=== PATIENT | female | born 1945 | race Caucasian/White ===

== ENCOUNTER → 2022-10-20 | Outpatient (CLI) | payer MEDICARE, SELFPAY ==
[2022-10-20 12:15] LABS: Absolute Lymphocyte Count 1.58 X10^3/uL (0.83-4.51); Absolute Neutrophil Count 4.2 X10^3/uL (2.0-7.7); Basophil# 0.04 X10^3/uL; Basophil% 0.6 % (0-1); Eosinophil# 0.05 X10^3/uL; Eosinophils% 0.8 % (0-5); Hematocrit 46.1 % (37-47); Hemoglobin 14.9 g/dL (12.0-15.0); Lymphocyte # 1.58 X10^3/ul (0.83-4.51); Lymphocyte % 24.9 % (19-41); Mean Corp Hgb Conc 32.3 g/dL (32-36); Mean Corpuscular Hgb 31.2 pg (27.0-32.0); Mean Corpuscular Volume 96.6 fL (81-99); Monocyte# 0.42 X10^3/uL; Monocyte% 6.6 % (0-10); NRBC Flagged by Analyzer 0 % (0-5); Neutrophil # 4.24 X10^3/uL (2.7-7.7); Neutrophil % 66.8 % (47-70); Platelet Count 123 K/mm3 (150-450); RBC Distribution Width CV 12.5 % (11.6-14.6); RBC Distribution Width SD 44.8 fl (35.1-43.9); Red Blood Count 4.77 M/mm3 (4.2-5.4); White Blood Count 6.4 K/mm3 (4.4-11.0)
[2022-10-20 13:24] LABS: Microalbumin,Random Urine < 5.0 mg/L (NO RANGE EST.)
[2022-10-20 14:05] LABS: ALB/GLOB Ratio 1.1 RATIO (0.9-2.4); AST(SGOT) 17 U/L (15-37); Alanine Aminotransfer ALT/SGPT 27 U/L (13-56); Albumin, Serum 3.9 g/dL (3.2-5.0); Alkaline Phosphatase 80 U/L (45-117); Anion Gap 9 (5-15); BUN 10 mg/dL (7-18); Calcium,Total 9.7 mg/dL (8.5-10.1); Chloride 104 mmol/L (98-107); Cholesterol 207 mg/dL (200); Creatinine, Serum 0.67 mg/dL (0.55-1.02); EST Glomerular Filtration Rate 91 mL/min (>60); Est Glom Filt Rate - Afr Amer 111 mL/min (>60); Free T3 4.2 pg/mL (2.18-3.98); Globulin 3.4 g/dL (2.2-4.2); Glucose 98 mg/dL (74-106); High Density Lipoprotein 85 mg/dL; Potassium 3.9 mmol/L (3.5-5.1); Protein, Total 7.3 g/dL (6.4-8.2); Sodium Level 140 mmol/L (136-145); T4 Free Direct 0.96 ng/dL (0.76-1.46); Thyroid Stim Hormone (TSH) 0.85 uIU/mL (0.358-3.74); Triglycerides 57 mg/dL; Very Low Density Lipoprotein 11 mg/dL (5-40)
== END | disposition home or self-care (01) ==
PROVIDERS: PCP Family Medicine; Referring Provider Family Medicine; Visit Provider Family Medicine
DX: I10 Essential (primary) hypertension (principal); E03.9 Hypothyroidism, unspecified
CPT/HCPCS: 36415; 80053; 80061; 82043; 84439; 84443; 84481; 85025

== ENCOUNTER → 2023-04-11 | Outpatient (CLI) | payer MEDICARE, SELFPAY ==
[2023-04-11 10:27] LABS: Absolute Lymphocyte Count 1.42 X10^3/uL (0.83-4.51); Absolute Neutrophil Count 3.9 X10^3/uL (2.0-7.7); Basophil# 0.07 X10^3/uL; Basophil% 1.1 % (0-1); Eosinophil# 0.34 X10^3/uL; Eosinophils% 5.5 % (0-5); Hematocrit 44.9 % (37-47); Hemoglobin 14.8 g/dL (12.0-15.0); Lymphocyte # 1.42 X10^3/ul (0.83-4.51); Mean Corpuscular Hgb 31.9 pg (27.0-32.0); Mean Corpuscular Volume 96.8 fL (81-99); Mean Platelet Vol. 13.3 fl (6.2-12.0); Monocyte# 0.41 X10^3/uL; Monocyte% 6.6 % (0-10); NRBC Flagged by Analyzer 0 % (0-5); Neutrophil # 3.92 X10^3/uL (2.7-7.7); Neutrophil % 63.5 % (47-70); Platelet Count 111 K/mm3 (150-450); RBC Distribution Width CV 12.9 % (11.6-14.6); RBC Distribution Width SD 45.9 fl (35.1-43.9); Red Blood Count 4.64 M/mm3 (4.2-5.4); White Blood Count 6.2 K/mm3 (4.4-11.0)
== END | disposition home or self-care (01) ==
LOC: MFPLAB 09:26
PROVIDERS: PCP Family Medicine; Visit Provider Family Medicine
DX: D69.6 Thrombocytopenia, unspecified (principal)
CPT/HCPCS: 36415; 85025

== ENCOUNTER → 2023-06-05 | Outpatient (CLI) | payer MEDICARE, SELFPAY ==
--- NOTE | 2023-06-05 10:10 | BI_ITS ---
MAMMOGRAPHY - BILATERAL SCREENING REASON FOR EXAM: Female, 77 years old. Routine annual screening examination. PERTINENT HISTORY: Daughter with breast cancer. TECHNIQUE: Digital bilateral breast gianni (3D mammographic acquisition) in the CC and MLO projections. 2-D mediolateral oblique (MLO) and craniocaudad (CC) views of both breasts were obtained. CAD: Full Field Digital Mammography with Computer Added Detection was performed. COMPARISON: Comparison is made with prior outside examination July 26, 2021. FINDINGS: Breast Composition: The breasts are extremely dense, which lowers the sensitivity of mammography. There are no dominant masses or suspicious calcifications. No other significant abnormalities are identified. There has been no significant change since the prior study. BI/SCRN MAMM (CAD)W/GIANNI BILAT IMPRESSION: Stable bilateral screening mammogram. Yearly follow-up mammogram recommended. (A) ASSESSMENT CATEGORY: BIRADS Category 1: Negative. A letter regarding these results will be sent to the patient by the facility within 30 days. Approximately 10% of breast cancers are not detected by mammography. A normal mammogram should not delay biopsy of a clinically suspicious abnormality. [id number] Electronically Signed: Augusto Zayas MD at 8:42 EDT ,
== END | disposition home or self-care (01) ==
LOC: OPBI 10:09
PROVIDERS: PCP Family Medicine; Referring Provider Internal Medicine Hematology & Oncology; Visit Provider Internal Medicine Hematology & Oncology
DX: Z12.31 Encounter for screening mammogram for malignant neoplasm of breast (principal)
CPT/HCPCS: 77063; 77067

== ENCOUNTER 2023-10-17 09:56 | Outpatient (CLI) | payer MEDICARE, SELFPAY ==
[2023-10-17 12:12] LABS: Absolute Lymphocyte Count 0.81 X10^3/uL (0.83-4.51); Basophil# 0.06 X10^3/uL; Basophil% 0.9 % (0-1); Eosinophil# 0.08 X10^3/uL; Eosinophils% 1.3 % (0-5); Hematocrit 43.3 % (37-47); Hemoglobin 13.5 g/dL (12.0-15.0); Lymphocyte # 0.81 X10^3/ul (0.83-4.51); Lymphocyte % 12.7 % (19-41); Mean Corp Hgb Conc 31.2 g/dL (32-36); Mean Corpuscular Volume 96.2 fL (81-99); Mean Platelet Vol. 12.7 fl (6.2-12.0); Monocyte% 6.3 % (0-10); NRBC Flagged by Analyzer 0 % (0-5); Neutrophil % 78.5 % (47-70); Platelet Count 244 K/mm3 (150-450); RBC Distribution Width CV 12.6 % (11.6-14.6); RBC Distribution Width SD 44.6 fl (35.1-43.9); White Blood Count 6.4 K/mm3 (4.4-11.0)
[2023-10-17 12:35] LABS: Microalbumin,Random Urine 5.6 mg/L (NO RANGE EST.); Microalbumin:Creatinine Ratio 23.5 mg/g CRE (<30 mg/g CRE)
[2023-10-17 12:41] LABS: Vitamin B12 1293 pg/mL (211-911); Vitamin D,25 Hydroxy 63.3 ng/mL
[2023-10-17 12:56] LABS: ALB/GLOB Ratio 0.7 RATIO (0.9-2.4); AST(SGOT) 29 U/L (15-37); Alanine Aminotransfer ALT/SGPT 28 U/L (13-56); Albumin, Serum 3.4 g/dL (3.2-5.0); Alkaline Phosphatase 116 U/L (45-117); Anion Gap 7 (5-15); BUN 10 mg/dL (7-18); BUN/Creat Ratio 14.7 RATIO (10-20); Calcium,Total 9.4 mg/dL (8.5-10.1); Chloride 105 mmol/L (98-107); Cholesterol 164 mg/dL (200); Creatinine, Serum 0.68 mg/dL (0.55-1.02); EST Glomerular Filtration Rate 89 mL/min (>60); Est Glom Filt Rate - Afr Amer 108 mL/min (>60); Ferritin 274 ng/mL (8-252); Globulin 4.6 g/dL (2.2-4.2); Glucose 110 mg/dL (74-106); High Density Lipoprotein 56 mg/dL; Potassium 4.1 mmol/L (3.5-5.1); Sodium Level 135 mmol/L (136-145); T4 Free Direct 0.97 ng/dL (0.76-1.46); Thyroid Stim Hormone (TSH) 3.52 uIU/mL (0.358-3.74); Triglycerides 70 mg/dL; Very Low Density Lipoprotein 14 mg/dL (5-40)
== END 2023-10-17 23:59 | disposition home or self-care (01) ==
LOC: MTLAB 09:57
PROVIDERS: PCP Family Medicine; Referring Provider Family Medicine; Visit Provider Family Medicine
DX: R53.83 Other fatigue (principal); D69.6 Thrombocytopenia, unspecified; I10 Essential (primary) hypertension; E03.9 Hypothyroidism, unspecified
CPT/HCPCS: 36415; 80053; 80061; 82043; 82306; 82570; 82607; 82728; 84439; 84443; 85025

== ENCOUNTER → 2023-11-16 | Outpatient (CLI) | payer MEDICARE, SELFPAY ==
--- NOTE | 2023-11-16 09:23 | RAD_ITS ---
STUDY: X-RAY - ESOPHAGUS (BARIUM SWALLOW) WITH FLUOROSCOPY REASON FOR EXAM: Female, 78 years old. Difficulty swallowing , please use 12mm tablet TECHNIQUE: 16 view(s) of the esophagus were obtained following swallowing of barium. FLUOROSCOPY TIME (if supplied): (31 seconds) minutes/seconds COMPARISON: None. FINDINGS: There is no demonstrated esophageal foreign body. There is no demonstrated stricture or mucosal abnormality. Large paraesophageal hiatal hernia with gastroesophageal reflux. The patient ingested a 12 mm tablet of barium. No evidence of obstruction. Normal visualized aortic arch and descending thoracic aorta. Normal visualized pulmonary parenchyma. There are diffuse degenerative changes of the visualized thoracic spine. RAD/Esophagus Dual Contrast IMPRESSION: Large paraesophageal hiatal hernia with gastroesophageal reflux. Electronically Signed: Augusto Zayas MD at 10:51 EST ,
== END | disposition home or self-care (01) ==
LOC: RAD 09:22
PROVIDERS: PCP Family Medicine; Referring Provider Family Medicine; Visit Provider Family Medicine
DX: R13.10 Dysphagia, unspecified (principal)
CPT/HCPCS: 74221

== ENCOUNTER 2024-02-13 19:45 | Emergency (ER) | payer MEDICARE, SELFPAY ==
[2024-02-13 19:46] VITALS: BP 166/82; PULSE 107; RESP 16; TEMP 37.7; O2SAT 97; BMI 22.8
[2024-02-13 19:47] VITALS: BP 166/81; PULSE 107; RESP 16; TEMP 37.7; O2SAT 97
== END 2024-02-13 21:32 | disposition left against medical advice (07) ==
LOC: ED 21:41
PROVIDERS: PCP Family Medicine
DX: R31.9 Hematuria, unspecified (principal); Z53.21 Procedure and treatment not carried out due to patient leaving prior to being seen by health care provider

== ENCOUNTER → 2024-02-14 | Outpatient (CLI) | payer MEDICARE, SELFPAY | END | disposition home or self-care (01) | LOC: LABSPEC 10:16 | PROVIDERS: PCP Family Medicine; Referring Provider Physician Assistant; Visit Provider Physician Assistant | DX: R30.0 Dysuria (principal) | CPT/HCPCS: 87086; 87088; 87186 ==

== ENCOUNTER → 2024-04-17 | Outpatient (CLI) | payer MEDICARE, SELFPAY ==
[2024-04-17 13:13] LABS: Thyroid Stim Hormone (TSH) 0.12 uIU/mL (0.358-3.74)
== END | disposition home or self-care (01) ==
LOC: MTLAB 10:27
PROVIDERS: PCP Family Medicine; Referring Provider Family Medicine; Visit Provider Family Medicine
DX: E03.9 Hypothyroidism, unspecified (principal)
CPT/HCPCS: 36415; 84443

== ENCOUNTER → 2024-06-06 | Outpatient (CLI) | payer MEDICARE, SELFPAY ==
--- NOTE | 2024-06-06 09:36 | BI_ITS ---
MAMMOGRAPHY - BILATERAL SCREENING REASON FOR EXAM: Female, 78 years old. Routine annual screening examination. PERTINENT HISTORY: Daughter with breast cancer. TECHNIQUE: Digital bilateral breast gianni (3D mammographic acquisition) in the CC and MLO projections. 2-D mediolateral oblique (MLO) and craniocaudad (CC) views of both breasts were obtained. CAD: Full Field Digital Mammography with Computer Added Detection was performed. COMPARISON: Comparison is made with prior study. Comparison is made with prior study dated June 05, 2023. FINDINGS: Breast Composition: The breasts are extremely dense, which lowers the sensitivity of mammography. There are no dominant masses or suspicious calcifications. No other significant abnormalities are identified. There has been no significant change since the prior study. BI/SCRN MAMM (CAD)W/GIANNI BILAT IMPRESSION: Stable bilateral screening mammogram. Yearly follow-up mammogram recommended. (A) ASSESSMENT CATEGORY: BIRADS Category 1: Negative. A letter regarding these results will be sent to the patient by the facility within 30 days. Approximately 10% of breast cancers are not detected by mammography. A normal mammogram should not delay biopsy of a clinically suspicious abnormality. [id number] Electronically Signed: Augusto Zayas MD at 11:12 EDT ,
== END | disposition home or self-care (01) ==
LOC: OPBI 09:36
PROVIDERS: PCP Family Medicine; Referring Provider Internal Medicine Hematology & Oncology; Visit Provider Internal Medicine Hematology & Oncology
DX: Z12.31 Encounter for screening mammogram for malignant neoplasm of breast (principal)
CPT/HCPCS: 77063; 77067

== ENCOUNTER → 2024-10-21 | Outpatient (CLI) | payer MEDICARE, SELFPAY ==
[2024-10-21 15:59] LABS: T4 Free Direct 0.75 ng/dL (0.76-1.46)
== END | disposition home or self-care (01) ==
LOC: MTLAB 13:02
PROVIDERS: PCP Family Medicine; Referring Provider Family Medicine; Visit Provider Family Medicine
DX: E03.9 Hypothyroidism, unspecified (principal)
CPT/HCPCS: 36415; 84439; 84443

== ENCOUNTER → 2024-12-02 | Outpatient (CLI) | payer MEDICARE, SELFPAY | END | disposition home or self-care (01) | LOC: MFPLAB 09:31 | PROVIDERS: PCP Family Medicine; Visit Provider Family Medicine | DX: E03.9 Hypothyroidism, unspecified (principal) | CPT/HCPCS: 36415; 84439; 84443 ==

== ENCOUNTER → 2025-06-09 | Outpatient (CLI) | payer MEDICARE, SELFPAY ==
--- NOTE | 2025-06-09 10:30 | BI_ITS ---
EXAM: SCRN MAMM (CAD)W/GIANNI BILAT DATE: 06/09/2025 CLINICAL HISTORY: F, Age 79 y/o , SCREENING TECHNIQUE: Procedure Code: [id number] Modality: MG Procedure: SCRN MAMM (CAD)W/GIANNI BILAT COMPARISON: Prior exam(s) dated 06/06/2024 and 06/05/2023. FINDINGS: TISSUE DENSITY: The breasts are extremely dense, which lowers the sensitivity of mammography. Bilateral Breast Mammographic Findings: No significant masses, calcifications or other abnormalities are identified. Benign-appearing round calcifications are seen in both breasts. BI/SCRN MAMM (CAD)W/GIANNI BILAT IMPRESSION: Benign screening mammogram. OVERALL FINAL ASSESSMENT BI-RADS 2: BENIGN RECOMMENDATION: Routine annual follow-up in 1 Year A letter with findings and recommendations will be mailed to the patient. Reading Location: [id number]
== END | disposition home or self-care (01) ==
LOC: OPBI 10:12
PROVIDERS: PCP Family Medicine; Referring Provider Internal Medicine Hematology & Oncology; Visit Provider Internal Medicine Hematology & Oncology
DX: Z12.31 Encounter for screening mammogram for malignant neoplasm of breast (principal)
CPT/HCPCS: 77063; 77067

== ENCOUNTER → 2025-07-16 | Outpatient (CLI) | payer MEDICARE, SELFPAY ==
--- OUTSIDE RECORDS SUMMARY | 2025-07-16 09:52 | XMS RPT_ITS | CCD ---
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 Silviano Paiz Attending Provider Deepak Bell MD Primary Care Provider [phone] Deepak Bell MD Attending Provider Deepak Bell MD Referring Provider Deepak Bell MD Primary Care Physician [phone] Silviano Paiz MD Attending Physician Dr. Silviano Paiz MD Referring Provider Deepak Bell MD Referring Provider [phone] Arabella, Chalon Primary Care Unavailable Arabella, Chalon Attending Unavailable Isckarus, Mansour Attending Unavailable Arabella, Chalon Referring Unavailable Arabella, Chalon Primary Care Unavailable Arabella, Chalon Primary Care Unavailable Isckarus, Mansour Attending Unavailable Isckarus, Mansour Referring Unavailable Arabella, Chalon Attending Unavailable Arabella, Chalon Referring Unavailable Arabella, Chalon Primary Care Unavailable Isckarus, Mansour Attending Unavailable Isckarus, Mansour Referring Unavailable Arabella, Chalon Primary Care Unavailable Arabella, Chalon Primary Care Unavailable Arabella, Chalon Attending Unavailable Arabella, Chalon Referring Unavailable Allergies Allergy Classification Reported Allergen(s) Allergy Type Date of Onset Reaction(s) Facility (6 sources) levothyroxine Drug Allergy 3 [facility] (6 sources) Tetracycline Drug Allergy 3 [facility] (7 sources) [place] pollen; Translations: [weed pollen] Allergy to substance 3 [facility] (7 sources) raw vegetable; Translations: [raw vegetable] Allergy to substance 3 [facility] Comment on above: or raw fruits - okay if cooked but not able to handle them (1 source) levothyroxine Drug Allergy 5 [facility] (1 source) Tetracycline Drug Allergy 5 [facility] Medications Current Medications Medication Drug Class(es) Dates Sig (Normalized) Sig (Original) famotidine 20 mg oral tablet (3 sources) Histamine-2 Receptor Antagonist Start: 06-13-2024 take 1 tablet by mouth once daily fluticasone propionate 0.05 mg/actuat metered dose nasal spray (3 sources) Corticosteroid Start: 02-14-2024 take 50 ug nasal route every twelve hours as needed irbesartan 150 mg oral tablet (6 sources) Angiotensin 2 Receptor Patt Start: 04-19-2023 take 1 tablet by mouth once daily quercetin 500 mg oral capsule (3 sources) Start: 02-14-2024 take 1 capsule by mouth once daily Thyroid (Pork) (Operations Program Manager Thyroid) 60 mg tablet (4 sources) Start: 04-19-2023 take 1 tablet by mouth once daily Thyroid (Pork) (Operations Program Manager Thyroid) 60 mg tablet Active 60 mg PO DAILY April 19, 2023 12:00am Start: 04-19-2023 take 1 tablet by mouth once da anaid Thyroid (Pork) (Operations Program Manager Thyroid) 60 mg tablet Active 60 MG PO DAILY April 18, 2023 11:00pm Start: 04-19-2023 take 1 tablet by mouth once da anaid Thyroid (Pork) (Operations Program Manager Thyroid) 60 mg tablet Active 60 MG PO DAILY April 19, 2023 12:00am thyroid (shelter) 60 mg oral tab let (2 sources) Start: 04-19-2023 take 1 tablet by harsha once daily Completed/Discontinued Medications Medication Drug Class(es) Dates Sig (Normalized) Sig (Original) amoxicillin 875 mg / clavulanate 125 mg oral tablet (3 sources) Penicillin-class Antibacterial Start: 02-14-2024 End: 06-13-2024 Amoxicillin-Pot Clavulanate 875-125 mg tablet Discontinued 1 {tbl} PO TWICE A DAY 10 0 February 14, 2024 12:00am June 13, 2024 11:18am bone and joint helper (3 sources) Start: 02-14-2024 End: 06-17-2025 take 225 mg by mouth once daily bone and joint helper Discontinued 2 NMA PO DAILY February 14, 2024 12:00am June 17, 2025 11:39am Vit D3 37.5 mg, Vit K3 90 mcg, Sarah 6 mg, CalZone 750 mg, 5-Loxin 225 mg Start: 02-14-2024 take 225 mg by mouth once sonido y bone and joint helper Active 2 NMA PO DAILY February 14, 2024 12:00am Vit D3 37.5 mg, Vit K3 90 mcg, Sarah 6 mg, CalZone 750 mg, 5-Loxin 225 mg joint all (3 sources) Start: 02-14-2024 End: 06-17-2025 joint all Discontinued 1 NMA PO daily February 14, 2024 12:00am June 17, 2025 11:39am hyauronic acid 20 mg, glucosamine HCL 1500 mg, chondroitin sulfate 1200 mg Start: 02-14-2024 joint all Acti ve 1 NMA PO daily February 14, 2024 12:00am hyauronic acid 20 mg, glucosamine HCL 1500 mg, chondroitin sulfate 1200 mg Metagenics, Bone Builder Forte (3 sources) Start: 02-14-2024 End: 06-17-2025 take 160 mg by mouth once daily Metagenics, Bone Builder Forte Discontinued 2 NMA PO DAILY February 14, 2024 12:00am June 17, 2025 11:39am Vit D 50 mcg, Calsium 420 mg, Phospheros 160 mg Start: 02-14-2024 take 160 mg by mouth once sonido y Metagenics, Bone Builder Forte Active 2 NMA PO DAILY February 14, 2024 12:00am Vit D 50 mcg, Calsium 420 mg, Phospheros 160 mg RABEprazole sodium 20 mg delayed release oral tablet (3 sources) Proton Pump Inhibitor Start: 02-14-2024 End: 06-13-2024 take 1 tablet by mouth once daily before breakfast Rabeprazole 20 mg tablet,delayed release (DR/EC) Discontinued 20 mg PO once daily before breakfast February 14, 2024 12:00am June 13, 2024 11:19am Seleno-Iodine, Ortho Molecular (3 sources) Start: 02-14-2024 End: 06-17-2025 take 100 ug by mouth once daily Seleno-Iodine, Ortho Molecular Discontinued 1 NMA PO DAILY February 14, 2024 12:00am June 17, 2025 11:39am Iodine from Potassium Iodine 3 mg, Selenium 100 mcg Start: 02-14-2024 take 100 ug by mouth once daily Seleno-Iodine, Ortho Molecular Active 1 NMA PO DAILY February 14, 2024 12:00am Iodine from Potassium Iodine 3 mg, Selenium 100 mcg Problems Problem Classification Problem Date Documented Date Episodic/Chronic Coagulation and hemorrhagic disorders (10 sources) Thrombocytopenic disorder; Translations: [Thrombocytopenia, unspecified] Onset: 06-17-2025 05-22-2023 Chronic Comment on above: At least since 2021 Essential hypertension (6 sources) Hypertensive disorder; Translations: [Essential (primary) hypertension] 04-19-2023 Chronic Other screening for suspected conditions (not mental disorders or infectious disease) (1 source) Encounter for screening mammogram for malignant neoplasm of breast; Translations: [Encounter for screening mammogram for malignant neoplasm of breast] Onset: 06-21-2025 Episodic Thyroid disorders (7 sources) Hypothyroidism; Translations: [Hypothyroidism, unspecified] Onset: 12-12-2024 04-19-2023 Chronic Results Test Name Value Interpretation Reference Range Facility Absolute lymphocyte countOrd ered By: Silviano Paiz on 06-17-2025 Lymphocytes Auto (Unsp spec) [#/Vol] 0.95 10*3/uL 0.83-4.51 [facility] Absolute neutrophil countOrd ered By: Silviano Paiz on 06-17-2025 Neutrophils (Bld) [#/Vol] 4.2 10*3/uL 2.0-7.7 [facility] Automated lymphocyte count a s percentage of total leukocytesOrdered By: Silviano Paiz on 06-17-2025 Lymphocytes/100 WBC Auto (Unsp spec) 16.4 % Low 19-41 [facility] Basophil percentageOrdered B y: Silviano Paiz on 06-17-2025 Basophils/100 WBC (Bld) 0.7 % 0-1 [facility] CBC W/Diff, Automatedon 09-2 -2024 Absolute Lymph 0.95 X10 3/uL Normal 0.83-4.51 [facility] Comment on above: Performed By: #### L 100.0100 #### [facility] [address] [place], [address] Absolute Neut 4.2 X10 3/uL Normal 2.0-7.7 [facility] Comment on above: Performed By: #### L 100.0100 #### [facility] [address] [place], [address] Basophils/100 WBC (Bld) 0.7 % Normal 0-1 [facility] Comment on above: Performed By: #### L 100.0100 #### [facility] [address] [place], [address] Eosinophils/100 WBC (Bld) 1.7 % Normal 0-5 [facility] Comment on above: Performed By: #### L 100.0100 #### [facility] [address] [place], [address] Erythrocyte distribution width (RBC) [Ratio] 12.6 % Normal 11.6-14.6 [facility] Comment on above: Performed By: #### L 100.0100 #### [facility] [address] [place], [address] Hematocrit (Bld) [Volume fraction] 41.8 % Normal 37-47 [facility] Comment on above: Performed By: #### L 100.0100 #### [facility] [address] [place], [address] Hemoglobin (Bld) [Mass/Vol] 13.6 g/dL Normal 12.0-15.0 [facility] Comment on above: Performed By: #### L 100.0100 #### [facility] [address] [place], [address] IG% 0.300 Normal 0.0-0.9 [facility] Comment on above: Result Comment: IG% - Immature Granulocytes (promyelocytes, myelocytes and metamyelocytes) > 1% indicates that a LEFT SHIFT is Present. Performed By: #### L 100.0100 #### [facility] [address] [place], [address] Lymphocytes/100 WBC (Bld) 16.4 % Low 19-41 [facility] Comment on above: Performed By: #### L 100.0100 #### [facility] [address] [place], [address] MCH (RBC) [Entitic mass] 31.5 pg Normal 27.0-32.0 [facility] Comment on above: Performed By: #### L 100.0100 #### [facility] [address] [place], [address] MCHC (RBC) [Mass/Vol] 32.5 g/dL Normal 32-36 [facility] Comment on above: Performed By: #### L 100.0100 #### [facility] [address] [place], [address] MCV (RBC) [Entitic vol] 96.8 fL Normal 81-99 [facility] Comment on above: Performed By: #### L 100.0100 #### [facility] [address] [place], [address] Monocytes/100 WBC (Bld) 8.6 % Normal 0-10 [facility] Comment on above: Performed By: #### L 100.0100 #### [facility] [address] [place], [address] Neutrophils/100 WBC (Bld) 72.3 % High 47-70 [facility] Comment on above: Performed By: #### L 100.0100 #### [facility] [address] [place], [address] Nucleated RBC (Bld) [#/Vol] 0 10*3/uL Normal 0-5 [facility] Comment on above: Performed By: #### L 100.0100 #### [facility] [address] [place], [address] Platelet mean volume (Bld) [Entitic vol] 12.9 fL High 6.2-12.0 [facility] Comment on above: Performed By: #### L 100.0100 #### [facility] [address] [place], [address] Platelets (Bld) [#/Vol] 108 10*3/uL Low 150-450 [facility] Comment on above: Performed By: #### L 100.0100 #### [facility] [address] [place], [address] RBC (Bld) [#/Vol] 4.32 10*6/uL Normal 4.2-5.4 [facility] Comment on above: Performed By: #### L 100.0100 #### [facility] [address] [place], [address] RDW SD 45.0 fl High 35.1-43.9 [facility] Comment on above: Performed By: #### L 100.0100 #### [facility] [address] [place], [address] WBC (Bld) [#/Vol] 5.8 10*3/uL Normal 4.4-11.0 [facility] Comment on above: Performed By: #### L 100.0100 #### [facility] [address] [place], [address] Eosinophil percentageOrdered By: Silviano Paiz on 06-17-2025 Eosinophils/100 WBC (Bld) 1.7 % 0-5 [facility] Erythrocyte distribution wid th ratioOrdered By: Silviano Paiz on 06-17-2025 Erythrocyte distribution width (RBC) [Ratio] 12.6 % 11.6-14.6 [facility] Erythrocyte distribution wid th standard deviationOrdered By: Silviano Paiz on 06-17-2025 Erythrocyte distribution width (RBC) [Ratio] 45.0 fl High 35.1-43.9 [facility] Hematocrit Auto (Bld) [Volum e fraction]Ordered By: Silviano Paiz on 06-17-2025 Hematocrit (Bld) [Volume fraction] 41.8 % 37-47 [facility] Hemoglobin measurementOrdere d By: Silviano Paiz on 06-17-2025 Hemoglobin (Bld) [Mass/Vol] 13.6 g/dL 12.0-15.0 [facility] Immature granulocytes/100 WB C Auto (Bld)Ordered By: Silviano Paiz on 06-17-2025 Immature granulocytes/100 WBC (Bld) 0.300 % 0.0-0.9 [facility] Comment on above: IG% - Immature Granu locytes (promyelocytes, myelocytes and metamyelocytes) > 1% indicates that a LEFT SHIFT is Present. MCV (mean corpuscular volume ) determinationOrdered By: Silviano Paiz on 06-17-2025 MCV (RBC) [Entitic vol] 96.8 fL 81-99 [facility] Mean corpuscular hemoglobin (MCH) determinationOrdered By: Silviano Paiz on 06-17-2025 MCH (RBC) [Entitic mass] 31.5 pg 27.0-32.0 [facility] Mean corpuscular hemoglobin concentration (MCHC) determinationOrdered By: Silviano Paiz on 06-17-2025 MCHC (RBC) [Mass/Vol] 32.5 g/dL 32-36 [facility] Mean platelet volume determi nationOrdered By: Silviano Paiz on 06-17-2025 Platelet mean volume (Bld) [Entitic vol] 12.9 fL High 6.2-12.0 [facility] Monocyte percentageOrdered B y: Silviano Paiz on 06-17-2025 Monocytes/100 WBC (Bld) 8.6 % 0-10 [facility] Neutrophil percentageOrdered By: Silviano Paiz on 06-17-2025 Neutrophils/100 WBC (Bld) 72.3 % High 47-70 [facility] Nucleated red blood cell per centageOrdered By: Silviano Paiz on 06-17-2025 Nucleated RBC/100 WBC (Bld) [Ratio] 0 % 0-5 [facility] Oncology Visit Reporton 05-27 Oncology Visit Report [facility] [place] [facility] [place] [address] OFFICE VISIT Date of Service: 06/17/25 1134 MR#: [id number] Acct: [id number] Name: TERESA LOWRY Rep #: [id number] : 1945 From: Silviano Paiz MD Age/Sex: 79/F Location: [facility] Status: Signed HPI Subjective Date of Service 06/13/24 Chief Complaint Low platelet count History of Present Illness 77-year-old female moved from [place] back to her hometown in [place] in 2022 and noted to have thrombocytopenia. See lab section for risk control representative blood counts. Patient provided an old CBC from September 2021 showing a platelet count of 119. No abnormal bleeding or bruising. [facility] Medical History Hiatal hernia Hypothyroid Hypertension Thrombocytopenia Surgical History History of esophagogastroduodenoscopy (EGD) History of dilation and curettage History of appendectomy Family History Father Heart disease Myocardial infarction Mother Heart disease Myocardial infarction Social History Smoking Status: Never smoker alcohol intake: never substance use type: does not use ROS Constitutional Constitutional: Reports systems reviewed and no addt'l complaints, except as documented Eyes Eyes: Reports systems reviewed and no addt'l complaints, except as documented ENT HEENT: Reports systems reviewed and no addt'l complaints, except as documented; Denies bleeding gums or epistaxis Cardiovascular Cardiovascular: Reports systems reviewed and no addt'l complaints, except as documented Respiratory/Chest Respiratory/Chest: Reports systems reviewed and no addt'l complaints, except as documented; Denies cough or hemoptysis Gastrointestinal Gastrointestinal: Reports systems reviewed and no addt'l complaints, except as documented; Denies hematochezia or melena Genitourinary Genitourinary: Reports systems reviewed and no addt'l complaints, except as documented; Denies hematuria Musculoskeletal Musculoskeletal: Reports systems reviewed and no addt'l complaints, except as documented Integumentary Integumentary: Reports systems reviewed and no addt'l complaints, except as documented; Denies bleeding lesions or unusual bruising Neurologic Neurologic: Reports systems reviewed and no addt'l complaints, except as documented Psychiatric Psychiatric: Reports systems reviewed and no addt'l complaints, except as documented Endocrine Endocrinology: Reports systems reviewed and no addt'l complaints, except as documented Hematologic/Lymphatic Hematologic/Lymphatic: Reports systems reviewed and no addt'l complaints, except as documented; Denies anemia, easy bleeding or easy bruising Allergic/Immunologic Allergic/Immunologic: Reports systems reviewed and no addt'l complaints, except as documented Intake Vital Signs 06/13/24 11:20 06/17/25 11:35 06/17/25 11:40 Height 5 ft 2 in 5 ft 2 in 5 ft 2 in Weight: 56.699 kg BMI 22.8 BP 176/82 H Blood Pressure Location Lt brachial Position Sitting Respiration 18 Pulse 69 Pulse Source Monitor Temp 97.7 F L Temperature Source Temporal Artery Pulse Oximetry (%) 95 Oxygen Delivery Method room air Intake Is patient in pain?: No Allergies raw vegetable Allergy (Mild, Verified 06/17/25 11:37) Rash weed pollen Allergy (Mild, Verified 06/17/25 11:37) Rash tetracycline Allergy (Verified 06/17/25 11:37) Hives levothyroxine Adverse Reaction (Verified 06/17/25 11:37) Dizziness Medications ???Medication ???Instructions ???Recorded ???Confirmed ???Type irbesartan 150 mg tablet 150 mg PO DAILY 04/19/23 06/13/24 History thyroid (pork) 60 mg tablet (SINGLE FOLD MACHINE OPERATOR 60 mg PO DAILY 04/19/23 06/13/24 H istory Thyroid) fluticasone propionate 50 1 spray intranasal Q12H PRN 06/13/24 History mcg/actuation nasal spray,suspension (Flonase Allergy Relief) quercetin 500 mg capsule 500 mg PO DAILY 02/14/24 06/13/24 History famotidine 20 mg tablet 20 mg PO QDAY 06/13/24 06/13/24 Hi story Have you fallen in the past year?: No Central Venous Access Central Venous Access: No Laboratory Tests 10/20/22 04/11/23 10/17/23 10:33 09: 10:04 Plt Count 123 L 111 L 244 06/13/24 06/17/25 10:13 10:40 Plt Count 122 L 108 L Exam Physical Exam Const alert, oriented x3 and no apparent distress Skin no petechiae General Skin Exam: Negative for ecchymosis Coding Level of Care Code Off vis,est,level 3 Exam Problem Focused Diagnoses Thrombocytopenia D69.6 Assessment and Plan Assessment and Plan (1) Thrombocytopenia: Status: Chronic (more content not included)... Normal [facility] Platelet countOrdered By: Sera Paiz on 06-17-2025 Platelets (Bld) [#/Vol] 108 10*3/uL Low 150-450 [facility] RBC Auto (Bld) [#/Vol]Ordere d By: Silviano Paiz on 06-17-2025 RBC (Bld) [#/Vol] 4.32 10*6/uL 4.2-5.4 [facility] White blood cell (WBC) count Ordered By: Silviano Paiz on 06-17-2025 WBC (Bld) [#/Vol] 5.8 10*3/uL 4.4-11.0 [facility] Breast imaging reportOrdered By: Sivan Maxwell on 06-09-2025 Study report [facility] Imaging Services [address] [place] [address] SCRN MAMM (CAD)W/GIANNI BILAT MR#: [id number] Acct: [id number] Name: TERESA LOWRY Rep #: [id number] : 1945 F 79 From: Blu Maxwell DO PCP: Dr. Deepak Bell MD Status: REG CL I Study:SCRN MAMM (CAD)W/GIANNI BILAT Date of Exa m: 06/09/25 Exam# [id number] Ordering Dr: Silviano Paiz MD EXAM: SCRN MAMM (CAD)W/GIANNI BILAT DATE: 06/09/2025 CLINICAL HISTORY: F, Age 79 y/o , SCREENING TECHNIQUE: Procedure Code: BISMWCADBTOM Modality: MG Procedure: SCRN MAMM (CAD)W/GIANNI BILAT COMPARISON: Prior exam(s) dated 06/06/2024 and 06/05/2023. FINDINGS: TISSUE DENSITY: The breasts are extremely dense, which lowers the sensitivity ofmammography. Bilateral Breast Mammographic Findings: No significant masses, calcifications or other abnormalities are identified. Benign-appearing round calcifications are seen in both breasts. BI/SCRN MAMM (CAD)W/GIANNI BILAT IMPRESSION: Benign screening mammogram. OVERALL FINAL ASSESSMENT BI-RADS 2: BENIGN RECOMMENDATION: Routine annual follow-up in 1 Year A letter with findings and recommendations will be mailed to the patient. Reading Location: [id number] CC: Dr. Deepak Bell MD; Dr. 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 Deepak Bell MD Status: REG CLI Study: SCRN MAMM (CAD)W/GAINNI BILAT Date of Exam: 05/26 02/16 Exam# [id number] Ordering Dr: Silviano Paiz MD EXAM: SCRN MAMM (CAD)W/GIANNI BILAT DATE: 06/09/2025 CLINICAL HISTORY: F, Age 79 y/o , SCREENING TECHNIQUE: Procedure Code: BISMWCADBTOM Modality: MG Procedure: SCRN MAMM (CAD)W/GIANNI BILAT COMPARISON: Prior exam(s) dated 06/06/2024 and 06/05/2023. FINDINGS: TISSUE DENSITY: The breasts are extremely dense, which lowers the sensitivity of mammography. Bilateral Breast Mammographic Findings: No significant masses, calcifications or other abnormalities are identified. Benign-appearing round calcifications are seen in both breasts. BI/SCRN MAMM (CAD)W/GIANNI BILAT IMPRESSION: Benign screening mammogram. OVERALL FINAL ASSESSMENT BI-RADS 2: BENIGN RECOMMENDATION: Routine annual follow-up in 1 Year A letter with findings and recommendations will be mailed to the patient. Reading Location: [id number] CC: Dr. Deepak Bell MD; Dr. Silviano Paiz MD Auto Former Machine Operator: Signed Normal [facility] T4 Free Directon 12-02-2024 T4 FREE DIRECT 1.00 ng/dL Normal 0.76-1.46 [facility] Comment on above: Order Comment: Order Date: 10/23/24 Order Info: [id number] - TSH Order Info: 3024-7 - T4F hypothyroid Performed By: #### L 501.9520, L506.0400 #### [facility] [address] [place] [address]. [place], [address] T4 freeOrdered By: Deepak bailey on 12-02-2024 Free T4 [Mass/Vol] 1.00 ng/dL 0.76-1.46 [facility] TSH DL <= 0.005 mIU/L QnOrde red By: Deepak Bell on 12-02-2024 Thyroid Stimulating Hormone (TSH) 1.070 uIU/mL 0.300-4.20 0 [facility] Thyroid Stim Hormone (TSH)on 12-02-2024 TSH 1.070 uIU/mL Normal 0.300-4.20 0 [facility] Comment on above: Order Comment: Order Date: 10/23/24 Order Info: [id number] - TSH Order Info: 3024-7 - T4F Performed By: #### L 501.9520, L506.0400 #### [facility] [address] [facility] [place], [place], [id number] Direct serum free thyroxine (FT4) measurementOrdered By: Deepak Bell on 10-21-2024 Free T4 [Mass/Vol] 0.75 ng/dL Low 0.76-1.46 [facility] T4 Free Directon 10-21-2024 T4 FREE DIRECT 0.75 ng/dL Low 0.76-1.46 [facility] Comment on above: Performed By: #### L 501.9520, L506.0400 #### [facility] [address] [place], [place], [id number] TSH QnOrdered By: Deepak white on 10-21-2024 Thyroid Stimulating Hormone (TSH) 25.100 uIU/mL High 0.358-3.74 0 [facility] Thyroid Stim Hormone (TSH)on 10-21-2024 TSH 25.100 uIU/mL High 0.358-3.74 0 [facility] Comment on above: Performed By: #### L 501.9520, L506.0400 #### [facility] [address] [place], [place], [id number] Absolute lymphocyte countOrd ered By: Arabella Card on 10-17-2023 Lymphocytes Auto (Unsp spec) [#/Vol] 0.81 10*3/uL 0.83-4.51 [facility] Automated lymphocyte count a s percentage of total leukocytesOrdered By: Arabella Card on 10-17-2023 Lymphocytes/100 WBC Auto (Unsp spec) 12.7 % 19-41 [facility] Basophil percentageOrdered B y: Arabella Card on 10-17-2023 Basophils/100 WBC (Bld) 0.9 % 0-1 [facility] Bilirubin [Mass/Vol] 0.70 mg/dL 0.20-1.00 [facility] [facility] Comment on above: For patients on eltr ombopag therapy, use of Dimension [place] TBIL is not recommended. Chloride [Moles/Vol] 105 mmol/L 98-107 [facility] Cholesterol [Mass/Vol] 164 mg/dL <200 [facility] Comment on above: <200 mg/dL Desirable 200-240 mg/dL Borderline >240 mg/dL High Risk Eosinophils/100 WBC (Bld) 1.3 % 0-5 [facility] Glucose [Mass/Vol] 110 mg/dL 74-106 [facility] Comment on above: Fasting Glucose resu lt from 100 to 125 mg/dL suggests IMPAIRED HOMEOSTASIS per A.D.A. criteria. Hemoglobin (Bld) [Mass/Vol] 13.5 g/dL 12.0-15.0 [facility] Monocytes/100 WBC (Bld) 6.3 % 0-10 [facility] Neutrophils (Bld) [#/Vol] 5.0 10*3/uL 2.0-7.7 [facility] Neutrophils/100 WBC (Bld) 78.5 % 47-70 [facility] Potassium [Moles/Vol] 4.1 mmol/L 3.5-5.1 [facility] Protein [Mass/Vol] 8.0 g/dL 6.4-8.2 [facility] Sodium [Moles/Vol] 135 mmol/L 136-145 [facility] Triglyceride [Mass/Vol] 70 mg/dL <199 [facility] Comment on above: The drugs N-Acetylcy steine and Metamizole may falsely depress this assay.Serum Triglycerides Reference Interval Normal <150 mg/dL Borderline high 150 - 199 mg/dL High 200 - 499 mg/dL Very High > or = 500 mg/dL WBC (Bld) [#/Vol] 6.4 10*3/uL 4.4-11.0 [facility] Determination of erythrocyte mean corpuscular volume (MCV)Ordered By: Arabella Card on 10-17-2023 MCV (RBC) [Entitic vol] 96.2 fL 81-99 [facility] Erythrocyte distribution wid th ratioOrdered By: Arabella Card on 10-17-2023 Erythrocyte distribution width (RBC) [Ratio] 12.6 % 11.6-14.6 [facility] Erythrocyte distribution wid th standard deviationOrdered By: Arabella Card on 10-17-2023 Erythrocyte distribution width (RBC) [Entitic vol] 44.6 fL 35.1-43.9 [facility] Hematocrit Auto (Bld) [Volum e fraction]Ordered By: Arabella Card on 10-17-2023 Hematocrit (Bld) [Volume fraction] 43.3 % 37-47 [facility] High density lipoprotein (HD L) measurementOrdered By: Arabella Card on 10-17-2023 Cholesterol in HDL (Body fld) [Mass/Vol] 56 mg/dL >40 [facility] Comment on above: The drugs N-Acetylcy steine and Metamizole may falsely depress this assay. Reference Range HDL <40 mg/dL Low HDL Cholesterol HDL >or= 60 mg/dL High HDL Cholesterol Immature granulocytes/100 WB C Auto (Bld)Ordered By: Arabella Card on 10-17-2023 Immature granulocytes/100 WBC (Bld) 0.300 % 0.0-0.9 [facility] Comment on above: IG% - Immature Granu locytes (promyelocytes, myelocytes and metamyelocytes) > 1% indicates that a LEFT SHIFT is Present. Laboratory - Chemistry and C hemistry - challengeOrdered By: Arabella Card on 10-17-2023 Albumin/Globulin [Mass ratio] 0.7 {ratio} 0.9-2.4 [facility] ALP [Catalytic activity/Vol] 116 U/L 45-117 [facility] ALT [Catalytic activity/Vol] 28 U/L 13-56 [facility] CO2 [Moles/Vol] 23.0 mmol/L 21.0-32.0 [facility] Cobalamin (Vitamin B12) [Mass/Vol] 1293 pg/mL 211-911 [facility] Ferritin [Mass/Vol] 274 ng/mL 8-252 [facility] Globulin (S) [Mass/Vol] 4.6 g/dL 2.2-4.2 [facility] Urea nitrogen/Creatinine [Mass ratio] 14.7 mg/mg 10-20 [facility] Laboratory - Hematology and Cell countsOrdered By: Arabella Card on 10-17-2023 MCH (RBC) [Entitic mass] 30.0 pg 27.0-32.0 [facility] MCHC (RBC) [Mass/Vol] 31.2 g/dL 32-36 [facility] Nucleated RBC/100 WBC (Bld) [Ratio] 0 % 0-5 [facility] Platelets (Bld) [#/Vol] 244 10*3/uL 150-450 [facility] Low density lipoprotein (LDL ) cholesterol measurementOrdered By: Arabella Card on 10-17-2023 Cholesterol in LDL (Body fld) [Moles/Vol] 94 mg/dL 0-130 [facility] No Panel InformationOrdered By: Arabella Card on 10-17-2023 Estimated GFR (MDRD) Amer 108 mL/min >60 [facility] Comment on above: GFR Calc Estimated GFR (MDRD) Non-Af Amer 89 mL/min >60 [facility] Comment on above: Non- GFR Calc Vitamin D 25-Hydroxy 63.3 ng/mL [facility] Comment on above: Vitamin D 25(OH) Sta tus Range Deficiency <20 ng/mL (50nmol/L) Insufficiency 20 - 30 ng/mL (50 - 75 nmol/L) Sufficiency 30 - 100 ng/mL (75 - 250 nmol/L) Toxicity >100 ng/mL (>250 nmol/L) Platelet mean volume Jose-Ec ker (Bld) [Entitic vol]Ordered By: Arabella Card on 10-17-2023 Platelet mean volume (Bld) [Entitic vol] 12.7 fL 6.2-12.0 [facility] RBC Auto (Bld) [#/Vol]Ordere d By: Arabella Card on 10-17-2023 RBC (Bld) [#/Vol] 4.50 10*6/uL 4.2-5.4 [facility] Serum or plasma calcium jasmina urement (mass/volume)Ordered By: Arabella Card on 10-17-2023 Calcium [Mass/Vol] 9.4 mg/dL 8.5-10.1 [facility] Serum or plasma creatinine m easurement (mass/volume)Ordered By: Arabella Card on 10-17-2023 Creatinine [Mass/Vol] 0.68 mg/dL 0.55-1.02 [facility] Comment on above: The validity of the calculated GFR & GFRAA in patients over 70 years has not been determined. Clinical correlation is essential. Serum or plasma thyroid stim ulating hormone (TSH) measurement (units/volume)Ordered By: Arabella Card on 10-17-2023 TSH Qn 3.52 uIU/mL 0.358-3.74 [facility] Serum or plasma urea nitroge n measurement (mass/volume)Ordered By: Arabella Card on 10-17-2023 Urea nitrogen [Mass/Vol] 10 mg/dL 7-18 [facility] Thin prep Papanicolaou smear with manual screeningOrdered By: Arabella Card on 10-17-2023 Thin prep Papanicolaou smear with manual screening 3.4 g/dL 3.2-5.0 [facility] Thin prep Papanicolaou smear with manual screening 29 U/L 15-37 [facility] Thin prep Papanicolaou smear with manual screening 7 5-15 [facility] Thin prep Papanicolaou smear with manual screening 5.6 mg/L NO RANGE EST. [facility] Thin prep Papanicolaou smear with manual screening 0.97 ng/dL 0.76-1.46 [facility] Urine albumin/creatinine rat io for detection of microalbuminuriaOrdered By: Arabella Card on 10-17-2023 Albumin/Creatinine DL <= 1.0 mg/L (24H U) [Ratio] 23.5 mg/g CRE <30 [facility] Urine creatinine measurement (mass/volume)Ordered By: Arabella Card on 10-17-2023 Creatinine (U) [Mass/Vol] 23.80 mg/dL NO RANGE EST. [facility] Very low density lipoprotein (VLDL) cholesterol measurementOrdered By: Arabella Card on 10-17-2023 Cholesterol in VLDL Calc [Moles/Vol] 14 mg/dL 5-40 [facility] Absolute lymphocyte countOrd ered By: Arabella Card on 04-11-2023 Lymphocytes Auto (Unsp spec) [#/Vol] 1.42 10*3/uL 0.83-4.51 [facility] Basophil percentageOrdered B y: Arabella Card on 04-11-2023 Basophils/100 WBC (Bld) 1.1 % 0-1 [facility] Eosinophils/100 WBC (Bld) 5.5 % 0-5 [facility] Neutrophils (Bld) [#/Vol] 3.9 10*3/uL 2.0-7.7 [facility] Neutrophils/100 WBC (Bld) 63.5 % 47-70 [facility] WBC (Bld) [#/Vol] 6.2 10*3/uL 4.4-11.0 [facility] Blood erythrocytes count (nu mber/volume)Ordered By: Arabella Card on 04-11-2023 RBC (Bld) [#/Vol] 4.64 10*6/uL 4.2-5.4 [facility] Blood hemoglobin measurement (mass/volume)Ordered By: Arabella Card on 04-11-2023 Hemoglobin (Bld) [Mass/Vol] 14.8 g/dL 12.0-15.0 [facility] Blood lymphocytes/100 leukoc ytesOrdered By: Arabella Card on 04-11-2023 Lymphocytes/100 WBC (Bld) 23.0 % 19-41 [facility] Blood monocytes/100 leukocyt esOrdered By: Arabella Card on 04-11-2023 Monocytes/100 WBC (Bld) 6.6 % 0-10 [facility] Blood platelet mean volumeOr dered By: Arabella Card on 04-11-2023 Platelet mean volume (Bld) [Entitic vol] 13.3 fL 6.2-12.0 [facility] Determination of erythrocyte mean corpuscular volume (MCV)Ordered By: Arabella Card on 04-11-2023 MCV (RBC) [Entitic vol] 96.8 fL 81-99 [facility] Hematocrit Auto (Bld) [Volum e fraction]Ordered By: Arabella Card on 04-11-2023 Hematocrit (Bld) [Volume fraction] 44.9 % 37-47 [facility] Laboratory - Hematology and Cell countsOrdered By: Arabella Card on 04-11-2023 Erythrocyte distribution width (RBC) [Entitic vol] 45.9 fL 35.1-43.9 [facility] Erythrocyte distribution width (RBC) [Ratio] 12.9 % 11.6-14.6 [facility] Immature granulocytes/100 WBC (Bld) 0.300 % 0.0-0.9 [facility] Comment on above: IG% - Immature Granu locytes (promyelocytes, myelocytes and metamyelocytes) > 1% indicates that a LEFT SHIFT is Present. MCH (RBC) [Entitic mass] 31.9 pg 27.0-32.0 [facility] Nucleated RBC/100 WBC (Bld) [Ratio] 0 % 0-5 [facility] MCHC Auto (RBC) [Mass/Vol]Or dered By: Arabella Card on 04-11-2023 MCHC (RBC) [Mass/Vol] 33.0 g/dL 32-36 [facility] Platelets bldOrdered By: Leti Card on 04-11-2023 Platelets (Bld) [#/Vol] 111 10*3/uL 150-450 [facility] Vital Signs Date Time Vital Sign Value Performing Clinician Shanon coates 06-17-2025 11:40-0400 Body height 157.48 cm Deepak Bell MD Work Phone: [facility] 06-17-2025 11:40-0400 Body mass index (BMI) [Ratio] 22.8 kg/m2 Deepak Bell MD Work Phone: [facility] 06-17-2025 11:40-0400 Body temperature 97.7 [degF] Deepak Bell MD Work Phone: [facility] 06-17-2025 11:40-0400 Body weight 56.69 kg Deepak Bell MD Work Phone: [facility] 06-17-2025 11:40-0400 Diastolic blood pressure 82 mm[Hg] Deepak Bell MD Work Phone: [facility] 06-17-2025 11:40-0400 Heart rate 69 /min Deepak Bell MD Work Phone: [facility] 06-17-2025 11:40-0400 Respiratory rate 18 /min Deepak Bell MD Work Phone: [facility] 06-17-2025 11:40-0400 SaO2% (BldA) [Mass fraction] 95 % Deepak Bell MD Work Phone: [facility] 06-17-2025 11:40-0400 Systolic blood pressure 176 mm[Hg] Deepak Bell MD Work Phone: [facility] 05-22-2023 16:03-0400 Body height 157.48 cm DO Arabella Stephie Work Phone: [facility] 05-22-2023 16:03-0400 Body mass index (BMI) [Ratio] 23.6 kg/m2 DO Arabella Stephie Work Phone: [facility] 05-22-2023 16:03-0400 Body temperature 98.4 [degF] DO Arabella Stephie Work Phone: [facility] 05-22-2023 16:03-0400 Body weight 58.57 kg DO Arabella Stephie Work Phone: [facility] 05-22-2023 16:03-0400 Diastolic blood pressure 91 mm[Hg] DO Arabella Stephie Work Phone: [facility] 05-22-2023 16:03-0400 Heart rate 73 /min DO Arabella Stephie Work Phone: [facility] 05-22-2023 16:03-0400 Respiratory rate 16 /min DO Arabella Stephie Work Phone: [facility] 05-22-2023 16:03-0400 SaO2% (BldA) [Mass fraction] 97 % DO Arabella Stephie Work Phone: [facility] 05-22-2023 16:03-0400 Systolic blood pressure 169 mm[Hg] DO Arabella Stephie Work Phone: [facility] Encounters Encounter Date Encounter Type Care Provider Facility Start: 07-09-2025 ambulatory Deepak Bell Facility:[facility] Start: 06-17-[address] Dennis Paiz MD -[facility] Start: 06-17-2025 End: 06-17-[address] Silviano Paiz MD -[facility] Work Phone: Start: 06-17-2025 End: 06-17-2025 ambulatory Deepak Bell MD Work Phone: -[facility] Start: 06-09-2025 End: 06-09-2025 ambulatory Deepak Bell MD Work Phone: -[facility] Start: 06-09-2025 End: 06-09-[address] Silviano Paiz MD -[facility] Work Phone: Start: 06-09-2025 End: 06-09-2025 ambulatory Deepak Bell Facility:[facility] Start: 12-02-2024 End: 12-02-2024 ambulatory Deepak Bell MD Work Phone: [facility] Work Phone: Start: 12-02-2024 End: 12-02-[address] Deepak Bell MD -[facility] Start: 12-02-2024 End: 12-02-[facility] Start: 10-21-2024 End: 10-21-[address] Deepak Bell MD -[facility] Work Phone: Start: 10-21-2024 End: 10-21-2024 [facility] Start: 11-16-2023 End: 11-16-2023 ambulatory [facility] Work Phone: Start: 11-16-2023 End: 11-16-2023 Patient encounter procedure [facility], [facility] Work Phone: Start: 10-17-2023 End: 10-17-2023 ambulatory [facility] Work Phone: Start: 10-17-2023 End: 10-17-2023 Patient encounter procedure [facility] Work Phone: Start: 06-05-2023 End: 06-05-2023 ambulatory DO Arabella Juanita Stephie Work Phone: [facility] Work Phone: Start: 06-05-2023 End: 06-05-2023 Patient encounter procedure DO Arabella Card Work Phone: [facility]-Outpatient Breast Imaging Work Phone: Start: 05-22-2023 End: 05-22-2023 Patient encounter procedure DO Arabella Card Work Phone: [facility] Work Phone: Start: 04-11-2023 End: 04-11-2023 Patient encounter procedure DO Arabella Card Work Phone: [facility] Family Procedures Date Procedure Procedure Detail Performing Clinician Start: 06-09-2025 Screening mammography C coco Bell MD Work Phone: Start: 11-16-2023 Radiography of esophagus Start: 06-05-2023 Screening mammography D O Arabella Card Work Phone: Payers Date Payer Category Payer Self-pay 2024 Medicare [id number] Unknown [facility] [id number] Unknown [id number] Unknown [id number] [id number] [id number] Unknown [id number] [id number] [id number] Unknown [id number] [id number] [id number] Unknown [id number] 2.16.8 [id number] Social History Date Type Detail Facility Start: 05-22-2023 End: 05-22-2023 Tobacco smoking status NHIS Unknown if ever smoked [facility] Start: 1945 Sex Assigned At Female [facility] Start: 05-22-2023 Tobacco smoking stat us NCIS Never smoked tobacco (finding) [facility] Start: 12-12-2024 Sex Female (finding) [facility] Sex Female [facility] Evaluation note 06-17-2025 Note Date & Type Note Facility 06-17-2025 Evaluation note Diagnosis Onset Date Resolution Thrombocytopenia chronic Septembe r 2024 10:37am [facility] Work Phone: Progress note 06-17-2025 Note Date & Type Note Facility 06-17-2025 Progress note [facility] Evaluation note Note Date & Type Note Facility Evaluation note Diagnosis Onset Date Thrombocytopenia chronic [facility] Work Phone: Evaluation note Note Date & Type Note Facility Evaluation note No assessment information availa ble [facility] Work Phone: Evaluation note Note Date & Type Note Facility Evaluation note Diagnosis Onset Date Resolution Thrombocytopenia chronic Septembe r 2024 10:37am [facility] Work Phone: Progress note Note Date & Type Note Facility Progress note Note Date/Time June 17, 2025 11:56am [facility] [address] [place] [address] OFFICE VISIT Date of Service: 06/17/25 1134 MR#: [id number] Acct: [id number] Name: TERESA LOWRY Rep #: [id number] : 1945 From: Silviano magana MD Age/Sex: 79/F Location: [facility] Status: Signed HPI Subjective Date of Service 06/13/24 Chief Complaint Low platelet count History of Present Illness 77-year-old female moved from [place] back to her hometown in [place] in 2022 and noted to have thrombocytopenia. See lab section for risk control representative blood counts. Patient provided an old CBC from September 2021 showing a platelet count of 119. No abnormal bleeding or bruising. [facility] Medical History Hiatal hernia Hypothyroid Hypertension Thrombocytopenia Surgical History History of esophagogastroduodenoscopy (EGD) History of dilation and curettage History of appendectomy Family History Father Heart disease Myocardial infarction Mother Heart disease Myocardial infarction Social History Smoking Status: Never smoker alcohol intake: never substance use type: does not use ROS Constitutional Constitutional: Reports systems reviewed and no addt'l complaints, except as documented Eyes Eyes: Reports systems reviewed and no addt'l complaints, except as documented ENT HEENT: Reports systems reviewed and no addt'l complaints, except as documented; Denies bleeding gums or epistaxis Cardiovascular Cardiovascular: Reports systems reviewed and no addt'l complaints, except as documented Respiratory/Chest Respiratory/Chest: Reports systems reviewed and no addt'l complaints, except as documented; Denies cough or hemoptysis Gastrointestinal Gastrointestinal: Reports systems reviewed and no addt'l complaints, except as documented; Denies hematochezia or melena Genitourinary Genitourinary: Reports systems reviewed and no addt'l complaints, except as documented; Denies hematuria Musculoskeletal Musculoskeletal: Reports systems reviewed and no addt'l complaints, except as documented Integumentary Integumentary: Reports systems reviewed and no addt'l complaints, except as documented; Denies bleeding lesions or unusual bruising Neurologic Neurologic: Reports systems reviewed and no addt'l complaints, except as documented Psychiatric Psychiatric: Reports systems reviewed and no addt'l complaints, except as documented Endocrine Endocrinology: Reports systems reviewed and no addt'l complaints, except as documented Hematologic/Lymphatic Hematologic/Lymphatic: Reports systems reviewed and no addt'l complaints, exceptas documented; Denies anemia, easy bleeding or easy bruising Allergic/Immunologic Allergic/Immunologic: Reports systems reviewed and no addt'l complaints, except as documented Intake Vital Signs 06/13/24 11:20 06/17/25 11:35 06/17/25 11:40 Height 5 ft 2 in 5 ft 2 in 5 ft 2 in Weight: 56.699 kg BMI 22.8 BP 176/82 H Blood Pressure Location Lt brachial Position Sitting Respiration 18 Pulse 69 Pulse Source Monitor Temp 97.7 F L Temperature Source Temporal Artery Pulse Oximetry (%) 95 Oxygen Delivery Method room air Intake Is patient in pain?: No Allergies raw vegetable Allergy (Mild, Verified 06/17/25 11:37) Rash weed pollen Allergy (Mild, Verified 06/17/25 11:37) Rash tetracycline Allergy (Verified 06/17/25 11:37) Hives levothyroxine Adverse Reaction (Verified 06/17/25 11:37) Dizziness Medications ?Medication ?Instructions ?Recorded ?Confirmed ?Type irbesartan 150 mg tablet 150 mg PO DAILY 04/19/23 History thyroid (pork) 60 mg tablet (SINGLE FOLD MACHINE OPERATOR 60 mg PO DAILY 3 06/13/24 History Thyroid) fluticasone propionate 50 1 spray intranasal Q12H PRN 02/14/24 06/13/24 History mcg/actuation nasal spray,suspension (Flonase Allergy Relief) quercetin 500 mg capsule 500 mg PO DAILY 02/14/24 History famotidine 20 mg tablet 20 mg PO QDAY 06/13/2406/13 History Have you fallen in the past year?: No Central Venous Access Central Venous Access: No Laboratory Tests 10/20/22 04/11/23 10/17/23 10:33 09:26 10:04 Plt Count 123 L 111 L 244 06/13/24 06/17/25 10:13 10:40 Plt Count 122 L 108 L Exam Physical Exam Const alert, oriented x3 and no apparent distress Skin no petechiae General Skin Exam: Negative for ecchymosis Coding Level of Care Code Off vis,est,level 3 Exam Problem Focused Diagnoses Thrombocytopenia D69.6 Assessment and Plan Assessment and Plan (1) Thrombocytopenia: Status: Chronic Comment: At least since September 2021 Plan 79-year-old female with mild (over 100 K) chronic (since at least September 2021),intermittent isolated thrombocytopenia. The fluctuations between normal and mildly low platelet count is no change in prescription medications fevers chronic mild immune thrombocytopenia (ITP) Chronic comorbid conditions: Hypothyroidism and hypertension. Recommendations: From hematology oncology: 1. Annual follow-up. 2. Call for any abnormal bleeding or bruising. 3. Call prior any elective invasive procedure for a platelet count check. 4. Annual screening mammography, Up-to-date May 2025 Impression and recommendations discussed with patient. Silviano Paiz MD [employer], [facility] Divisions of Medical Oncology & Hematology Department of Internal Medicine [place] [id number] This note was generated using a voice recognition system software. Although itwas reviewed by the author prior to finalization, it may still contain incorrectwords, spelling, and punctuation that were not noted when reviewing prior to saving. If a clinically significant typo or inaccurately typed phrase is noted, please notify the author. Clinical Quality Measures Falls Risk Screening/Assistive Devices Have you fallen in the past year?: No 06/17/25 1244 <Electronically signed by Silviano caal MD> Date _ Silviano Paiz MD Cosigner Signature: Date (if applicable) CC: Dr. Deepak Bell MD ~ [facility] [employer] Work Phone: Reason for referral (narrative) Note Date & Type Note Facility Reason for referral (narrative) No reason for referral information available [facility] Work Phone: Chief Complaint and Reason for Visit Chief Complaint NEW PT - THROMBOCYTO PENIA SCREENING NEED FILMS Reason for Visit Thrombocytopenia Chief Complaint EORDER Chief Complaint EORDER DYSPHAGIA Chief Complaint Admit Date NEED ORDER October 21, 2024 1 :00pm Chief Complaint Admit Date SCREENING June 09, 2025 10:12am 1YR LABS REVIEW MAMMO June 17 10:37am 1YR LABS REVIEW MAMMO June 17 10:45am Reason for Visit Admit Date Thrombocytopenia June 17, 2025 10:37am Family History No Family History Records Found Relationship Condition Age at Onset Recorded Date/T tracey father Cardiac disease Unknown Myocardial infarction Unknown mother Cardiac disease Unknown Summary Purpose Advance Directives No Advanced Directives Records Found Additional Source Comments Care Teams (unrecognized sec tion and content) Team Status: Active Member Role Status Dates Dr. Balbir Berg III, MD Family Provider Active Arabella Card DO Primary Care Provider Active Team Status: Inactive Member Role Status Dates Arabella Card , DO Primary Care Provider, Referring Provider Active Dr. Silviano Paiz MD Attending Provider Active Team Status: Inactive Member Role Status Dates Arabella Card , DO Primary Care Provider, Attending Provider Active Team Status: Inactive Member Role Status Dates Arabella Card , DO Primary Care Provider Active Dr. Silviano Paiz MD Attending Provider, Referrin g Provider Active Team Status: Inactive Member Role Status Dates Arabella Card , DO Primary Care Provi eunice, Attending Provider, Referring Provider Active Team Status: Active Member Role Status Dates Dr. Balbir Berg III, MD Family Provider Active Deepak Bell MD Primary Care Provider Active Team Status: Inactive Member Role Status Chel Bell MD Primary Care Provider Active St art: October 21, 2024 End: October 21, 2024 Deepak Bell MD Attending Provider Active Start : October 21, 2024 End: October 21, 2024 Deepak Bell MD Referring Provider Active Start : October 21, 2024 End: October 21, 2024 Team Status: Inactive Member Role Status Chel Bell MD Primary Care Provider Active St art: December 02, 2024 End: December 02, 2024 Deepak Bell MD Attending Provider Active Start : December 02, 2024 End: December 02, 2024 Team Status: Active Member Role/Relationship Status Chel Bell MD Primary care physician Active Team Status: Inactive Member Role/Relationship Status Chel Bell MD Primary care physician Active S tart: June 09, 2025 End: June 09, 2025 Dr. Silviano Paiz MD Attending physician Active Start: June 09, 2025 End: June 09, 2025 Dr. Silviano Paiz MD Referring Provider Active Start: June 09, 2025 End: June 09, 2025 Team Status: Inactive Member Role/Relationship Status Dates Deepak Bell MD Primary care physician Active S tart: June 17, 2025 End: June 17, 2025 Deepak Bell MD Referring Provider Active Start : June 17, 2025 End: June 17, 2025 Dr. Silviano Paiz MD Attending physician Active Start: June 17, 2025 End: June 17, 2025 Team Status: Active Member Role/Relationship Status Dates Deepak Bell MD Primary care physician Active S tart: June 17, 2025 Dr. Silviano Paiz MD Attending physician Active Start: June 17, 2025 Dr. Silviano Paiz MD Referring Provider Active Start: June 17, 2025 Goals (unrecognized section and content) Goals may be documented in a n alternate sectionGoals may be documented in an alternate sectionGoals may be documented in an alternate sectionGoals may be documented in an alternate sectionGoals may be documented in an alternate sectionGoals may be documented in an alternate section INFORMATION SOURCE (unrecogn ized section and content) DATE CREATED AUTHOR 07/11/2025 [facility] FOR RECORDS PERTAINING TO PATIENTS WHO ARE OR HAVE BEEN ENROLLED IN A CHEMICAL DEPENDENCY/SUBSTANCEABUSE PROGRAM, SOME INFORMATION MAY BE OMITTED. This clinical summary was aggregated from multiple sources. Caution should be exercised in using it in the provision of clinical care. This summary normalizes information from multiple sources, and as a consequence, information in this document may materially change the coding, format and clinical context of patient data. In addition, data may be omitted in some cases. CLINICAL DECISIONS SHOULD BE BASED ON THE PRIMARY CLINICAL RECORDS. [employer] provides no warranty or guarantee of the accuracy or completeness of information in this document.
[2025-07-16 10:37] LABS: Hematocrit 43.0 % (37-47); Hemoglobin 14.4 g/dL (12.0-15.0); Immature Granulocytes Count 0.010 X10^3/uL (0.0-0.0); Mean Corp Hgb Conc 33.5 g/dL (32-36); Mean Corpuscular Volume 93.7 fL (81-99); Mean Platelet Vol. 13.1 fl (6.2-12.0); NRBC Flagged by Analyzer 0 % (0-5); Platelet Count 101 K/mm3 (150-450); RBC Distribution Width CV 12.6 % (11.6-14.6); RBC Distribution Width SD 43.6 fl (35.1-43.9); Red Blood Count 4.59 M/mm3 (4.2-5.4); White Blood Count 4.6 K/mm3 (4.4-11.0)
[2025-07-16 11:00] LABS: AST(SGOT) 22 U/L (<=31); Alanine Aminotransfer ALT/SGPT 16 U/L (<=34); Albumin, Serum 4.1 g/dL (3.4-4.8); Alkaline Phosphatase 86 U/L (35-104); Anion Gap 11 (5-15); BUN 13 mg/dL (4-19); BUN/Creat Ratio 16.7 RATIO (10-20); Calcium,Total 9.7 mg/dL (7.6-11.0); Carbon Dioxide 25.5 mmol/L (21.0-32.0); Chloride 103 mmol/L (98-108); Cholesterol 205 mg/dL (<=200); Globulin 3.5 g/dL (2.2-4.2); Glucose 101 mg/dL (70-99); Low Density Lipoprotein Calc. 131 mg/dL; Potassium 4.1 mmol/L (3.3-5.1); Triglycerides 72 mg/dL; Very Low Density Lipoprotein 14 mg/dL (5-40); cholesterol:hdl ratio screen 3.37
== END | disposition home or self-care (01) ==
LOC: MFPLAB 09:11
PROVIDERS: PCP Family Medicine; Referring Provider Family Medicine; Visit Provider Family Medicine
DX: I10 Essential (primary) hypertension (principal); D69.6 Thrombocytopenia, unspecified; E03.9 Hypothyroidism, unspecified
CPT/HCPCS: 36415; 80053; 80061; 84443; 85025